=== PATIENT | male | born 1955 | race Caucasian/White ===

== ENCOUNTER 2017-09-19 13:44 | Inpatient (IN) | payer OTHER ==
[2017-09-19 14:37] VITALS: BMI 20.6
--- NOTE | 2017-09-19 18:32 | HP ---
COWS - Scale Resting Pulse: 0= [place] 80 or Below Sweatin= Chills/Flushing Restless Observation: 1= Difficult to Sit Still Pupil Size: 0= Normal to Room Light Bone or Joint Aches: 1= Mild Discomfort Runny Nose/ Eye Tearin= Nasal Congestion GI Upset > 30mins: 0= None Tremor Observation: 0= None Yawning Observation: 2= >3x During Session Anxiety or Irritability: 2=Irritable/Anxious Goose Flesh Skin: 0=Smooth Skin COWS Score: 8 Admission [facility] Chief Complaint: opioid withdrawal symptoms Allergies/Adverse Reactions: Allergies Allergy/AdvReac Type Severity Reaction Status Date / Time No Known Allergies Allergy Verified 09/19/17 16:32 History of Present Illness: 62 yo male with hx of heroin dependence (paranasal). PMHX: asthma, depression. Denies suicidal / homicidal ideation or hx of suicide attempt. Denies hx of seizures, blackouts or overdose. Longest period of sobriety 1.5 years. Last detox [facility] June 2015. Exam Limitations: No Limitations - Ebola screening Have you traveled outside of the country in the last 21 days: No (N) Have you had contact with anyone from an Ebola affected area: No Have you been sick,other than usual withdrawal symptoms: No Do you have a fever: No - Review of Systems Constitutional: Chills, Loss of Appetite, Changes in sleep, Unintentional Wgt. Loss EENT: reports: Nose Congestion Respiratory: reports: SOB with Exertion (reports hx of asthma) Cardiac: reports: No Symptoms Reported GI: reports: No Symptoms Reported : reports: No Symptoms Reported Musculoskeletal: reports: No Symptoms Reported Integumentary: reports: No Symptoms Reported Neuro: reports: Headache Endocrine: reports: No Symptoms Reported Hematology: reports: No Symptoms Reported Psychiatric: reports: Orientated x3, Depressed Other Systems: Reviewed and Negative Patient History - Patient Medical History Hx Anemia: No Hx Asthma: Yes (Pt is on MDI) Hx Chronic Obstructive Pulmonary Disease (COPD): No Hx Cancer: No Hx Cardiac Disorders: No Hx Congestive Heart Failure: No Hx Hypertension: No Hx Hypercholesterolemia: No Hx Pacemaker: No HX Cerebrovascular Accident: No Hx Seizures: No Hx Dementia: No Hx Diabetes: No Hx Gastrointestinal Disorders: No Hx Liver Disease: No Hx Genitourinary Disorders: No Hx Sexually Transmitted Disorders: No Hx Renal Disease (ESRD): No Hx Thyroid Disease: No Hx Human Immunodeficiency Virus (HIV): No (negative) Hx Hepatitis C: No Hx Depression: Yes Hx Suicide Attempt: No Hx Bipolar Disorder: No Hx Schizophrenia: No - Patient Surgical History Past Surgical History: Yes Hx Neurologic Surgery: No Hx Cataract Extraction: No Hx Cardiac Surgery: No Hx Lung Surgery: No Hx Breast Surgery: No Hx Breast Biopsy: No Hx Appendectomy: No Hx Cholecystectomy: No Hx Genitourinary Surgery: No Hx Section: No Hx Orthopedic Surgery: No Other Surgical History: R inguinal hernia repair. Anesthesia Reaction: No - PPD History Previous Implant?: Yes Documented Results: Negative w/proof Date: 06/11/15 Results: 0 mm PPD to be Administered?: Yes - Smoking Cessation Smoking history: Former smoker Have you smoked in the past 12 months: No If you are a former smoker, when did you quit?: Hx Chewing Tobacco Use: No Initiated information on smoking cessation: Yes 'Breaking Loose' booklet given: 09/19/17 - Substance & Tx. History Hx Alcohol Use: Yes Hx Substance Use: Yes Substance Use Type: Heroin Hx Substance Use Treatment: Yes (Last detox [facility] June 2015.) - Substances Abused Heroin Route: Inhalation Frequency: Daily Amount used: 15 BAGS Age of first use: 20 Date of Last Use: 09/19/17 Family Disease History - Family Disease History Family Disease History: Diabetes: Grandparent (GM-HTN), Other: Father (ARTHRITIS ) Admission Physical Exam BHS - Vital Signs Vital Signs: Vital Signs - 24 hr 09/19/17 09/19/17 14:35 17:35 Temperature 96.7 F L 98.1 F Pulse Rate 68 76 Respiratory 18 18 Rate Blood Pressure 116/76 120/60 - Physical General Appearance: Yes: Disheveled, Thin, Anxious HEENTM: Yes: EOMI, Hearing grossly Normal, Normal ENT Inspection, Pharynx Normal , Nasal Congestion, Tonsilar Exudate, Macrocephalic Respiratory: Yes: Chest Non-Tender, Lungs Clear, No Respiratory Distress, No Accessory Muscle Use, Wheezing Neck: Yes: Within Normal Limits Breast: Yes: Breast Exam Deferred Cardiology: Yes: Regular Rhythm, Regular Rate Abdominal: Yes: Normal Bowel Sounds, Non Tender, Flat, Soft Genitourinary: Yes: Within Normal Limits Back: Yes: Normal Inspection Musculoskeletal: Yes: full range of Motion, Gait Steady, Pelvis Stable Extremities: Yes: Normal Capillary Refill, Normal Inspection, Normal Range of Motion, Non-Tender 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 NML intact, Fully Oriented, Alert, Motor Strength 5/5, Depressed Affect Integumentary: Yes: Normal Color, Warm, Diaphoresis Lymphatic: Yes: Within Normal Limits - Diagnostic (1) Depressed mood Current Visit: Yes Status: Acute (2) Wheezing Current Visit: Yes Status: Acute (3) Weight loss Current Visit: Yes Status: Acute (4) Opioid dependence with withdrawal Current Visit: No Status: Acute (5) Asthma Current Visit: Yes Status: Chronic Qualifiers: Asthma severity: moderate Asthma complication type: unspecified (6) Cocaine dependence, uncomplicated Current Visit: Yes Status: Chronic Cleared for Admission [facility] - Detox or Rehab [facility] Level of Care: Medically Supervised Detox Regimen/Protocol: Methadone [facility] Breath Alcohol Content Breath Alcohol Content: 0 Urine Drug Screen - Results Drug Screen Negative: No Urine Drug Screen Results: OPI-Opiates
[2017-09-19] MEDS ORDERED: METHADONE HCL 10 MG TABLET (FOR DETOX USE ONLY) PO ONE ×2 (18:35→23:00)
[2017-09-19] MEDS ORDERED: IBUPROFEN 400 MG TABLET (FP) PO PRN (18:35)
[2017-09-19] MEDS ORDERED: MAGNESIUM CITRATE 300 ML BOTTLE PO PRN (18:35)
[2017-09-19] MEDS ORDERED: MAG HYDROX/AL HYDROX/SIMETH 30 ML UNIT-DOSE CUP PO PRN (18:35)
[2017-09-19] MEDS ORDERED: LOPERAMIDE HCL 2 MG CAPSULE PO PRN (18:35)
[2017-09-19] MEDS ORDERED: MENTHOL/PHENOL 1 EACH UD MM PRN (18:35)
[2017-09-19] MEDS ORDERED: guaiFENesin/D-METHORPHAN HB 10 ML UNIT-DOSE CUPS PO PRN (18:35)
[2017-09-19] MEDS ORDERED: MAGNESIUM HYDROX 2400MG/30ML ORAL SUSPENSION 30 ML CUP PO PRN (18:35)
[2017-09-19] MEDS ORDERED: P-EPHED 60MG/TRIPROLIDI 2.5MG TABLET PO PRN (18:35)
[2017-09-19] MEDS ORDERED: ACETAMINOPHEN 325 MG TABLET (FP) PO PRN (18:35)
[2017-09-19] MEDS: diazePAM 5 MG TABLET PO PRN (19:23)
[2017-09-19] MEDS: ALBUTEROL SO4 8 GM HFA INHALER IH PRN (19:27)
[2017-09-19 21:40] LABS: URINE APPEARANCE TURBID; URINE BILIRUBIN NEGATIVE (<2.0 mg/dL); URINE COLOR YELLOW; URINE GLUCOSE (UA) NEGATIVE (NEGATIVE); URINE KETONE NEGATIVE (NEGATIVE); URINE LEUK ESTERASE NEGATIVE (NEGATIVE); URINE NITRITE NEGATIVE (NEGATIVE); URINE PROTEIN NEGATIVE (NEGATIVE); URINE UROBILINOGEN NEGATIVE mg/dL (0.2-1.0)
[2017-09-19 21:45] LABS: YEAST RARE
[2017-09-19] MEDS: THIAMINE HCL 100 MG TABLET (FP) PO SCH (22:38)
[2017-09-20] MEDS: ALBUTEROL SO4 8 GM HFA INHALER IH PRN ×2 (03:21→08:33)
--- NOTE | 2017-09-20 09:21 | PN ---
BHS COWS - Scale Resting Pulse: 0= [place] 80 or Below Sweatin= Chills/Flushing Restless Observation: 1= Difficult to Sit Still Pupil Size: 1= Pupils >than Normal Bone or Joint Aches: 2= Severe Diffuse Aches Runny Nose/ Eye Tearin= Nasal Congestion GI Upset > 30mins: 1= Stomach Cramp Tremor Observation of Outstretched Hands: 2= Slight Tremor Visible Yawning Observation: 1= 1-2x During Session Anxiety or Irritability: 2=Irritable/Anxious Goose Flesh Skin: 0=Smooth Skin COWS Score: 12 BHS Progress Note (SOAP) Subjective: muscle aches sweat tremor restlessness irritable anxiety trouble sleep at night Objective: 09/20/17 09:19 Vital Signs Temperature 98.4 F 09/20/17 09:18 Pulse Rate 90 09/20/17 09:18 Respiratory Rate 18 09/20/17 09:18 Blood Pressure 127/71 09/20/17 09:18 O2 Sat by Pulse Oximetry (%) Laboratory Last Values Urine Color Yellow 09/19/17 21:00 Urine Appearance Turbid 09/19/17 21:00 Urine pH 5.0 (5.0-8.0) 09/19/17 21:00 Ur Specific [place] 1.026 (1.001-1.035) 09/19/17 21:00 Urine Protein Negative (NEGATIVE) 09/19/17 21:00 Urine Glucose (UA) Negative (NEGATIVE) 09/19/17 21:00 Urine Ketones Negative (NEGATIVE) 09/19/17 21:00 Urine Blood 1+ (NEGATIVE) H 09/19/17 21:00 Urine Nitrite Negative (NEGATIVE) 09/19/17 21:00 Urine Bilirubin Negative (<2.0 mg/dL) 09/19/17 21:00 Urine Urobilinogen Negative mg/dL (0.2-1.0) 09/19/17 21:00 Ur Leukocyte Esterase Negative (NEGATIVE) 09/19/17 21:00 Urine WBC (Auto) 41 /hpf (3-5) 09/19/17 21:00 Urine RBC (Auto) 2 /hpf (0-3) 09/19/17 21:00 Urine Yeast Rare 09/19/17 21:00 lab noted Assessment: 09/20/17 09:19 withdrawal sx Plan: continue detox
[2017-09-20 09:47] LABS: HEMATOCRIT 37.4 % (35.4-49); HEMOGLOBIN 12.6 GM/dL (11.7-16.9); MCH 29.8 pg (25.7-33.7); MCHC 33.7 g/dl (32.0-35.9); MEAN CELL VOLUME 88.5 fl (80-96); PLATELET COUNT 223 K/MM3 (134-434); RBC 4.23 M/mm3 (4.00-5.60); RDW 13.1 % (11.9-15.9); WHITE BLOOD COUNT 5.7 K/mm3 (4.0-10.0)
[2017-09-20] MEDS ORDERED: METHADONE HCL 10 MG TABLET (FOR DETOX USE ONLY) PO ONE (10:00)
[2017-09-20 10:35] LABS: ALBUMIN 3.4 g/dl (3.4-5.0); ANION GAP 7 (8-16); BLOOD UREA NITROGEN 20 mg/dL (7-18); CALCIUM 8.4 mg/dL (8.5-10.1); CHLORIDE 104 mmol/L (98-107); CO2 30 mmol/L (21-32); GLUCOSE,RANDOM 84 mg/dL (74-106); POTASSIUM 4.2 mmol/L (3.5-5.1); SODIUM 141 mmol/L (136-145)
[2017-09-20 10:39] LABS: ALK PHOS 62 U/L (45-117); BILIRUBIN,TOTAL 0.3 mg/dL (0.2-1.0); CREATININE 0.7 mg/dL (0.7-1.3); SGOT/AST 13 U/L (15-37); SGPT/ALT 22 U/L (12-78); TOT PROT 5.9 g/dl (6.4-8.2)
[2017-09-20] MEDS: PRENATAL VITAMINS W/ FOLIC ACID TABLET (FP) PO SCH (10:55)
--- NOTE | 2017-09-20 11:40 | CONSULT ---
[facility] Psychiatric Consult - Data Date of interview: 09/20/17 Admission source: [facility] Identifying data: Patient is a 62 year old single male, father of two, unemployed (denies receiving financial assistance) and homeless. This is one of multiple admissions for patient. Pt. admitted to for opiate dependence. Substance Abuse History: - Smoking Cessation. Smoking history: Former smoker. Have you smoked in the past 12 months: No. If you are a former smoker, when did you quit?: . Hx Chewing Tobacco Use: No. Initiated information on smoking cessation: Yes. 'Breaking Loose' booklet given: 09/19/17. - Substance & Tx. History. Hx Alcohol Use: Yes. Hx Substance Use: Yes. Substance Use Type : Heroin. Hx Substance Use Treatment: Yes (Last detox [facility] June 2015.). - Substances Abused. Heroin. Route: Inhalation. Frequency: Daily. Amount used: 15 BAGS. Age of first use: 20. Date of Last Use: 09/19/17 Medical History: Asthma, R inguinal hernia repair Psychiatric History: Patient denies h/o psychiatric hospitalization, outpatient care, and suicide attempt. Physical/Sexual Abuse/Trauma History: Denies. Mental Status Exam - Mental Status Exam Alert and Oriented to: Time, Place, Person Cognitive Function: Good Patient Appearance: Unkempt Mood: Euthymic Affect: Mood Congruent Patient Behavior: Cooperative Speech Pattern: Appropriate Voice Loudness: Moderately Soft/Quiet Thought Process: Intact, Goal Oriented Thought Disorder: Not Present Hallucinations: Denies Suicidal Ideation: Denies Homicidal Ideation: Denies Insight/Judgement: Poor Sleep: Fair Appetite: Fair Muscle strength/Tone: Normal Gait/Station: Other (Did not observe patient's gait.) Psychiatric Findings - Problem List ([place] 1, 2,3) (1) Opioid dependence with withdrawal Current Visit: Yes Status: Acute - Initial Treatment Plan Initial Treatment Plan: Psychoeducation provided. Detoxification in progress. Observation.
[2017-09-20] MEDS: ALBUTEROL SO4 0.083% IH SOL 2.5 MG/3 ML VIAL.NEB. NEB PRN ×2 (12:41→19:09)
--- NOTE | 2017-09-20 13:57 | EKG ---
Test Reason : Blood Pressure : / mmHG Vent. Rate : 069 BPM Atrial Rate : 069 BPM P-R Int : 148 ms QRS Dur : 092 ms QT Int : 410 ms P-R-T Axes : 083 084 070 degrees QTc Int : 439 ms NORMAL SINUS RHYTHM WITH SINUS ARRHYTHMIA NORMAL ECG NO PREVIOUS ECGS AVAILABLE Confirmed by Dillan Patel MD ([id number]) on 09/20/2017 1:57:15 PM Referred By: Confirmed By:Dillan Patel MD
[2017-09-20] MEDS: THIAMINE HCL 100 MG TABLET (FP) PO SCH (22:32)
[2017-09-20] MEDS: MELATONIN 5 MG TABLETS PO PRN (22:32)
[2017-09-21] MEDS: ALBUTEROL SO4 0.083% IH SOL 2.5 MG/3 ML VIAL.NEB. NEB PRN (02:17)
[2017-09-21] MEDS: diazePAM 5 MG TABLET PO PRN (06:10)
[2017-09-21] MEDS ORDERED: METHADONE HCL 5 MG TABLET (FOR DETOX USE ONLY) PO ONE (10:00)
[2017-09-21] MEDS: PRENATAL VITAMINS W/ FOLIC ACID TABLET (FP) PO SCH (10:19)
--- NOTE | 2017-09-21 11:51 | PN ---
S COWS - Scale Resting Pulse: 0= [place] 80 or Below Sweatin= Chills/Flushing Restless Observation: 1= Difficult to Sit Still Pupil Size: 1= Pupils >than Normal Bone or Joint Aches: 2= Severe Diffuse Aches Runny Nose/ Eye Tearin= Nasal Congestion GI Upset > 30mins: 2= Nausea/Diarrhea Tremor Observation of Outstretched Hands: 1= Tremor [place], Not Seen Yawning Observation: 1= 1-2x During Session Anxiety or Irritability: 2=Irritable/Anxious Goose Flesh Skin: 0=Smooth Skin COWS Score: 12 S Progress Note (SOAP) Subjective: joints pain body aches muscle cramp sweat tremor restlessness Objective: 09/21/17 11:52 Vital Signs Temperature 97.6 F 09/21/17 11:34 Pulse Rate 80 09/21/17 11:34 Respiratory Rate 16 09/21/17 11:34 Blood Pressure 130/70 09/21/17 11:34 O2 Sat by Pulse Oximetry (%) Laboratory Last Values WBC 5.7 K/mm3 (4.0-10.0) 09/20/17 07:00 RBC 4.23 M/mm3 (4.00-5.60) 09/20/17 07:00 Hgb 12.6 GM/dL (11.7-16.9) 09/20/17 07:00 Hct 37.4 % (35.4-49) 09/20/17 07:00 MCV 88.5 fl (80-96) 09/20/17 07:00 MCH 29.8 pg (25.7-33.7) 09/20/17 07:00 MCHC 33.7 g/dl (32.0-35.9) 09/20/17 07:00 RDW 13.1 % (11.9-15.9) D 09/20/17 07:00 Plt Count 223 K/MM3 (134-434) 09/20/17 07:00 MPV 9.0 fl (7.5-11.1) 09/20/17 07:00 Sodium 141 mmol/L (136-145) 09/20/17 07:00 Potassium 4.2 mmol/L (3.5-5.1) 09/20/17 07:00 Chloride 104 mmol/L (98-107) 09/20/17 07:00 Carbon Dioxide 30 mmol/L (21-32) 09/20/17 07:00 Anion Gap 7 (8-16) L 09/20/17 07:00 BUN 20 mg/dL (7-18) H 09/20/17 07:00 Creatinine 0.7 mg/dL (0.7-1.3) 09/20/17 07:00 Creat Clearance w eGFR > 60 (>60) 09/20/17 07:00 Random Glucose 84 mg/dL (74-106) 09/20/17 07:00 Calcium 8.4 mg/dL (8.5-10.1) L 09/20/17 07:00 Total Bilirubin 0.3 mg/dL (0.2-1.0) 09/20/17 07:00 AST 13 U/L (15-37) L D 09/20/17 07:00 ALT 22 U/L (12-78) 09/20/17 07:00 Alkaline Phosphatase 62 U/L (45-117) 09/20/17 07:00 Total Protein 5.9 g/dl (6.4-8.2) L 09/20/17 07:00 Albumin 3.4 g/dl (3.4-5.0) 09/20/17 07:00 Urine Color Yellow 09/19/17 21:00 Urine Appearance Turbid 09/19/17 21:00 Urine pH 5.0 (5.0-8.0) 09/19/17 21:00 Ur Specific [place] 1.026 (1.001-1.035) 09/19/17 21:00 Urine Protein Negative (NEGATIVE) 09/19/17 21:00 Urine Glucose (UA) Negative (NEGATIVE) 09/19/17 21:00 Urine Ketones Negative (NEGATIVE) 09/19/17 21:00 Urine Blood 1+ (NEGATIVE) H 09/19/17 21:00 Urine Nitrite Negative (NEGATIVE) 09/19/17 21:00 Urine Bilirubin Negative (<2.0 mg/dL) 09/19/17 21:00 Urine Urobilinogen Negative mg/dL (0.2-1.0) 09/19/17 21:00 Ur Leukocyte Esterase Negative (NEGATIVE) 09/19/17 21:00 Urine WBC (Auto) 41 /hpf (3-5) 09/19/17 21:00 Urine RBC (Auto) 2 /hpf (0-3) 09/19/17 21:00 Urine Yeast Rare 09/19/17 21:00 RPR Titer Nonreactive (NONREACTIVE) 09/20/17 07:00 lab noted Assessment: 09/21/17 11:53 withdrawal sx Plan: continue detox
[2017-09-21] MEDS: ALBUTEROL SO4 2.5/IPRATROPIUM 0.5 INH SOL 3 ML VIAL.NEB. NEB PRN ×2 (12:42→22:17)
[2017-09-21] MEDS: MELATONIN 5 MG TABLETS PO PRN (22:28)
[2017-09-21] MEDS: THIAMINE HCL 100 MG TABLET (FP) PO SCH (22:28)
[2017-09-22] MEDS: ALBUTEROL SO4 2.5/IPRATROPIUM 0.5 INH SOL 3 ML VIAL.NEB. NEB PRN (08:18)
--- NOTE | 2017-09-22 09:00 | PN ---
BHS Progress Note (SOAP) Subjective: sweat tremor restlessness irritable asthma episode released by ventolin and albuterol Objective: 09/22/17 08:57 Vital Signs Temperature 97.3 F L 09/22/17 07:26 Pulse Rate 71 09/22/17 07:26 Respiratory Rate 18 09/22/17 07:26 Blood Pressure 127/70 09/22/17 07:26 O2 Sat by Pulse Oximetry (%) Laboratory Last Values WBC 5.7 K/mm3 (4.0-10.0) 09/20/17 07:00 RBC 4.23 M/mm3 (4.00-5.60) 09/20/17 07:00 Hgb 12.6 GM/dL (11.7-16.9) 09/20/17 07:00 Hct 37.4 % (35.4-49) 09/20/17 07:00 MCV 88.5 fl (80-96) 09/20/17 07:00 MCH 29.8 pg (25.7-33.7) 09/20/17 07:00 MCHC 33.7 g/dl (32.0-35.9) 09/20/17 07:00 RDW 13.1 % (11.9-15.9) D 09/20/17 07:00 Plt Count 223 K/MM3 (134-434) 09/20/17 07:00 MPV 9.0 fl (7.5-11.1) 09/20/17 07:00 Sodium 141 mmol/L (136-145) 09/20/17 07:00 Potassium 4.2 mmol/L (3.5-5.1) 09/20/17 07:00 Chloride 104 mmol/L (98-107) 09/20/17 07:00 Carbon Dioxide 30 mmol/L (21-32) 09/20/17 07:00 Anion Gap 7 (8-16) L 09/20/17 07:00 BUN 20 mg/dL (7-18) H 09/20/17 07:00 Creatinine 0.7 mg/dL (0.7-1.3) 09/20/17 07:00 Creat Clearance w eGFR > 60 (>60) 09/20/17 07:00 Random Glucose 84 mg/dL (74-106) 09/20/17 07:00 Calcium 8.4 mg/dL (8.5-10.1) L 09/20/17 07:00 Total Bilirubin 0.3 mg/dL (0.2-1.0) 09/20/17 07:00 AST 13 U/L (15-37) L D 09/20/17 07:00 ALT 22 U/L (12-78) 09/20/17 07:00 Alkaline Phosphatase 62 U/L (45-117) 09/20/17 07:00 Total Protein 5.9 g/dl (6.4-8.2) L 09/20/17 07:00 Albumin 3.4 g/dl (3.4-5.0) 09/20/17 07:00 Urine Color Yellow 09/19/17 21:00 Urine Appearance Turbid 09/19/17 21:00 Urine pH 5.0 (5.0-8.0) 09/19/17 21:00 Ur Specific [place] 1.026 (1.001-1.035) 09/19/17 21:00 Urine Protein Negative (NEGATIVE) 09/19/17 21:00 Urine Glucose (UA) Negative (NEGATIVE) 09/19/17 21:00 Urine Ketones Negative (NEGATIVE) 09/19/17 21:00 Urine Blood 1+ (NEGATIVE) H 09/19/17 21:00 Urine Nitrite Negative (NEGATIVE) 09/19/17 21:00 Urine Bilirubin Negative (<2.0 mg/dL) 09/19/17 21:00 Urine Urobilinogen Negative mg/dL (0.2-1.0) 09/19/17 21:00 Ur Leukocyte Esterase Negative (NEGATIVE) 09/19/17 21:00 Urine WBC (Auto) 41 /hpf (3-5) 09/19/17 21:00 Urine RBC (Auto) 2 /hpf (0-3) 09/19/17 21:00 Urine Yeast Rare 09/19/17 21:00 RPR Titer Nonreactive (NONREACTIVE) 09/20/17 07:00 lab noted Assessment: 09/22/17 08:58 withdrawal sx asthma Plan: continue detox symbicort bid health teaching on side effects such as respiratory suppression of opiate based substance
[2017-09-22] MEDS ORDERED: METHADONE HCL 5 MG TABLET (FOR DETOX USE ONLY) PO ONE (10:00)
[2017-09-22] MEDS: diazePAM 5 MG TABLET PO PRN (10:43)
[2017-09-22] MEDS: PRENATAL VITAMINS W/ FOLIC ACID TABLET (FP) PO SCH (10:43)
[2017-09-22] MEDS: BUDESONIDE/FORMETEROL FUMARATE 80/4.5 mcg INHALER IH SCH ×2 (10:45→22:27)
[2017-09-22] MEDS: MELATONIN 5 MG TABLETS PO PRN (22:26)
[2017-09-22] MEDS: THIAMINE HCL 100 MG TABLET (FP) PO SCH (22:27)
[2017-09-23] MEDS ORDERED: METHADONE HCL 10 MG TABLET (FOR DETOX USE ONLY) PO ONE (10:00)
[2017-09-23] MEDS: BUDESONIDE/FORMETEROL FUMARATE 80/4.5 mcg INHALER IH SCH ×2 (10:17→22:32)
[2017-09-23] MEDS: PRENATAL VITAMINS W/ FOLIC ACID TABLET (FP) PO SCH (10:17)
--- NOTE | 2017-09-23 13:24 | PN ---
BHS Progress Note (SOAP) Subjective: no complaints today Objective: 09/23/17 12:49 Vital Signs - 24 hr 09/22/17 09/22/17 09/22/17 14:38 17:37 22:08 Temperature 97.9 F 98.2 F 98.1 F Pulse Rate 88 75 78 Respiratory 20 18 18 Rate Blood Pressure 111/81 105/59 131/79 09/23/17 09/23/17 09/23/17 00:30 03:30 06:48 Temperature 97.7 F Pulse Rate 70 Respiratory 18 16 18 Rate Blood Pressure 112/65 09/23/17 09:31 Temperature 98.1 F Pulse Rate 74 Respiratory 20 Rate Blood Pressure 111/47 Laboratory Tests 09/19/17 09/20/17 09/20/17 21:00 07:00 07:00 WBC 5.7 RBC 4.23 Hgb 12.6 Hct 37.4 MCV 88.5 MCH 29.8 MCHC 33.7 RDW 13.1 D Plt Count 223 MPV 9.0 Sodium 141 Potassium 4.2 Chloride 104 Carbon Dioxide 30 Anion Gap 7 L BUN 20 H Creatinine 0.7 Creat Clearance w eGFR > 60 Random Glucose 84 Calcium 8.4 L Total Bilirubin 0.3 AST 13 L D ALT 22 Alkaline Phosphatase 62 Total Protein 5.9 L Albumin 3.4 Urine Color Yellow Urine Appearance Turbid Urine pH 5.0 Ur Specific [place] 1.026 Urine Protein Negative Urine Glucose (UA) Negative Urine Ketones Negative Urine Blood 1+ H Urine Nitrite Negative Urine Bilirubin Negative Urine Urobilinogen Negative Ur Leukocyte Esterase Negative Urine WBC (Auto) 41 Urine RBC (Auto) 2 Urine Yeast Rare RPR Titer 09/20/17 07:00 WBC RBC Hgb Hct MCV MCH MCHC RDW Plt Count MPV Sodium Potassium Chloride Carbon Dioxide Anion Gap BUN Creatinine Creat Clearance w eGFR Random Glucose Calcium Total Bilirubin AST ALT Alkaline Phosphatase Total Protein Albumin Urine Color Urine Appearance Urine pH Ur Specific [place] Urine Protein Urine Glucose (UA) Urine Ketones Urine Blood Urine Nitrite Urine Bilirubin Urine Urobilinogen Ur Leukocyte Esterase Urine WBC (Auto) Urine RBC (Auto) Urine Yeast RPR Titer Nonreactive labs WNL VS WNL PE grossly nl Assessment: 09/23/17 13:24 continue detox protocol Plan: pt would like to go to rehab and then would like to be on Suboxone
[2017-09-23 22:29] VITALS: TEMP 97.7
[2017-09-23] MEDS: MELATONIN 5 MG TABLETS PO PRN (22:32)
[2017-09-23] MEDS: THIAMINE HCL 100 MG TABLET (FP) PO SCH (22:32)
[2017-09-24] MEDS ORDERED: METHADONE HCL 5 MG TABLET (FOR DETOX USE ONLY) PO ONE (06:00)
[2017-09-24 10:22] VITALS: BP 137/93; PULSE 80
[2017-09-24] MEDS: PRENATAL VITAMINS W/ FOLIC ACID TABLET (FP) PO SCH (10:53)
[2017-09-24] MEDS: BUDESONIDE/FORMETEROL FUMARATE 80/4.5 mcg INHALER IH SCH (10:53)
--- NOTE | 2017-09-24 12:32 | DS ---
[facility] Detox Discharge Summary Admission Date: 09/19/17 Discharge Date: 09/24/17 - History Present History: Cocaine Dependence, Opioid Dependence Pertinent Past History: Asthma and depression - Physical Exam Results Vital Signs: Vital Signs Temperature 97.7 F 09/24/17 10:22 Pulse Rate 80 09/24/17 10:22 Respiratory Rate 20 09/24/17 10:22 Blood Pressure 137/93 09/24/17 10:22 O2 Sat by Pulse Oximetry (%) Pertinent Admission Physical Exam Findings: Withdrawal sx Laboratory Last Values WBC 5.7 K/mm3 (4.0-10.0) 09/20/17 07:00 RBC 4.23 M/mm3 (4.00-5.60) 09/20/17 07:00 Hgb 12.6 GM/dL (11.7-16.9) 09/20/17 07:00 Hct 37.4 % (35.4-49) 09/20/17 07:00 MCV 88.5 fl (80-96) 09/20/17 07:00 MCH 29.8 pg (25.7-33.7) 09/20/17 07:00 MCHC 33.7 g/dl (32.0-35.9) 09/20/17 07:00 RDW 13.1 % (11.9-15.9) D 09/20/17 07:00 Plt Count 223 K/MM3 (134-434) 09/20/17 07:00 MPV 9.0 fl (7.5-11.1) 09/20/17 07:00 Sodium 141 mmol/L (136-145) 09/20/17 07:00 Potassium 4.2 mmol/L (3.5-5.1) 09/20/17 07:00 Chloride 104 mmol/L (98-107) 09/20/17 07:00 Carbon Dioxide 30 mmol/L (21-32) 09/20/17 07:00 Anion Gap 7 (8-16) L 09/20/17 07:00 BUN 20 mg/dL (7-18) H 09/20/17 07:00 Creatinine 0.7 mg/dL (0.7-1.3) 09/20/17 07:00 Creat Clearance w eGFR > 60 (>60) 09/20/17 07:00 Random Glucose 84 mg/dL (74-106) 09/20/17 07:00 Calcium 8.4 mg/dL (8.5-10.1) L 09/20/17 07:00 Total Bilirubin 0.3 mg/dL (0.2-1.0) 09/20/17 07:00 AST 13 U/L (15-37) L D 09/20/17 07:00 ALT 22 U/L (12-78) 09/20/17 07:00 Alkaline Phosphatase 62 U/L (45-117) 09/20/17 07:00 Total Protein 5.9 g/dl (6.4-8.2) L 09/20/17 07:00 Albumin 3.4 g/dl (3.4-5.0) 09/20/17 07:00 Urine Color Yellow 09/19/17 21:00 Urine Appearance Turbid 09/19/17 21:00 Urine pH 5.0 (5.0-8.0) 09/19/17 21:00 Ur Specific [place] 1.026 (1.001-1.035) 09/19/17 21:00 Urine Protein Negative (NEGATIVE) 09/19/17 21:00 Urine Glucose (UA) Negative (NEGATIVE) 09/19/17 21:00 Urine Ketones Negative (NEGATIVE) 09/19/17 21:00 Urine Blood 1+ (NEGATIVE) H 09/19/17 21:00 Urine Nitrite Negative (NEGATIVE) 09/19/17 21:00 Urine Bilirubin Negative (<2.0 mg/dL) 09/19/17 21:00 Urine Urobilinogen Negative mg/dL (0.2-1.0) 09/19/17 21:00 Ur Leukocyte Esterase Negative (NEGATIVE) 09/19/17 21:00 Urine WBC (Auto) 41 /hpf (3-5) 09/19/17 21:00 Urine RBC (Auto) 2 /hpf (0-3) 09/19/17 21:00 Urine Yeast Rare 09/19/17 21:00 RPR Titer Nonreactive (NONREACTIVE) 09/20/17 07:00 - Treatment Hospital Course: Detox Protocol Followed, Detoxed Safely, Responded well, Discharged Condition Good - Medication Discharge Medications: Ambulatory Orders Albuterol Sulfate Inhaler - [Ventolin HFA Inhaler -] 2 puff IH Q4H PRN #1 inhaler 08/20/15 Budesonide/Formeterol Fumarate [SYMBICORT 80/4.5mcg -] 1 inh PO BID 09/22/17 - Diagnosis (1) Nicotine dependence Current Visit: Yes Status: Acute Qualifiers: Nicotine product type: cigarettes Substance use status: in withdrawal Qualified Code(s): F17.213 - Nicotine dependence, cigarettes, with withdrawal (2) Opioid dependence with withdrawal Current Visit: Yes Status: Acute (3) Asthma Current Visit: Yes Status: Chronic Qualifiers: Asthma severity: moderate Asthma complication type: unspecified (4) Cocaine dependence, uncomplicated Current Visit: Yes Status: Chronic (5) Drug-induced mood disorder Current Visit: No Status: Suspected - AMA Did Patient Leave Against Medical Advice: No
== END 2017-09-24 12:09 | disposition other institution (70) | DRG 773 ==
LOC: YASAS 13:44 → Y6N 17:22
PROVIDERS: ADMIT Surgery; ATTEND Surgery
PROC: HZ2ZZZZ Detoxification Services for Substance Abuse Treatment (ICD-10-PCS; principal; 2017-09-19)
DX: F11.23 Opioid dependence with withdrawal (principal); F14.20 Cocaine dependence, uncomplicated; F17.213 Nicotine dependence, cigarettes, with withdrawal; F19.24 Other psychoactive substance dependence with psychoactive substance-induced mood disorder; F32.9 Major depressive disorder, single episode, unspecified; J45.40 Moderate persistent asthma, uncomplicated; R63.4 Abnormal weight loss; Z68.20 Body mass index [BMI] 20.0-20.9, adult; Z59.0 Homelessness
CPT/HCPCS: 36415; 80053; 81003; 81015; 85027; 86593; 93005; 93010; 94640; J7620

== ENCOUNTER 2017-09-24 12:18 | Inpatient (IN) | payer OTHER ==
[2017-09-24 12:53] VITALS: BMI 20.9
[2017-09-24] MEDS ORDERED: guaiFENesin/D-METHORPHAN HB 10 ML UNIT-DOSE CUPS PO PRN (13:25)
[2017-09-24] MEDS ORDERED: MAGNESIUM CITRATE 300 ML BOTTLE PO PRN (13:25)
[2017-09-24] MEDS ORDERED: LOPERAMIDE HCL 2 MG CAPSULE PO PRN (13:25)
[2017-09-24] MEDS ORDERED: MAGNESIUM HYDROX 2400MG/30ML ORAL SUSPENSION 30 ML CUP PO PRN (13:25)
[2017-09-24] MEDS ORDERED: P-EPHED 60MG/TRIPROLIDI 2.5MG TABLET PO PRN (13:25)
[2017-09-24] MEDS ORDERED: MENTHOL/PHENOL 1 EACH UD MM PRN (13:25)
[2017-09-24] MEDS ORDERED: ALBUTEROL SO4 8 GM HFA INHALER IH PRN (13:52)
[2017-09-24] MEDS: THIAMINE HCL 100 MG TABLET (FP) PO SCH (21:30)
[2017-09-24] MEDS: BUDESONIDE/FORMETEROL FUMARATE 80/4.5 mcg INHALER IH SCH (21:31)
[2017-09-24] MEDS: MELATONIN 5 MG TABLETS PO PRN (21:31)
[2017-09-25] MEDS: BUDESONIDE/FORMETEROL FUMARATE 80/4.5 mcg INHALER IH SCH ×2 (09:57→21:48)
[2017-09-25] MEDS: PRENATAL VITAMINS W/ FOLIC ACID TABLET (FP) PO SCH (09:57)
[2017-09-25] MEDS: MELATONIN 5 MG TABLETS PO PRN (21:48)
[2017-09-25] MEDS: THIAMINE HCL 100 MG TABLET (FP) PO SCH (21:48)
--- NOTE | 2017-09-26 06:37 | HP ---
Psychiatrist Admission - Data Date of interview: 09/26/17 Admission source: 6N Identifying data: This is the second [facility] admission for this 62 years old single Hispanc male, father of 2 children, unemployed on food stamp, homeless Medical History: Significant for history of bronchial asthma and history of surgery for right inguinal hernia repair Psychiatric History: Denies history of previous psychiatric treatment Physical/Sexual Abuse/Trauma History: Denies history of emotional, physical or sexual abuse as well as DV relationship. No service Additional Comment: Reports history of multiple previous arrests including 3-4 felony convivtions. Denies being on parole/probatio currently Vital Signs: Vital Signs - 24 hr 09/25/17 09/26/17 09/26/17 07:07 00:30 03:30 Respiratory 16 18 18 Rate Allergies/Adverse Reactions: Allergies Allergy/AdvReac Type Severity Reaction Status Date / Time No Known Allergies Allergy Verified 09/19/17 16:32 Date of last physical exam: 09/19/17 Concur with the findings of this exam: Yes - Substance Abuse/Tx History Hx Alcohol Use: Yes Hx Substance Use: Yes Substance Use Type: Heroin (Started using heroin at age 20, [id number] bags daily. Last used on 09/19/17) Hx Substance Use Treatment: Yes (7-8 previos inpt detox & 3-4 inpt rehab) Mental Status Exam - Mental Status Exam Alert and Oriented to: Time, Place, Person Cognitive Function: Fair Patient Appearance: Well Groomed Mood: Depressed (mildly) Affect: Appropriate Patient Behavior: Cooperative Speech Pattern: Clear Voice Loudness: Normal Thought Process: Intact, Goal Oriented Thought Disorder: Not Present Hallucinations: Denies Suicidal Ideation: Denies Homicidal Ideation: Denies Insight/Judgement: Fair Sleep: Poorly Appetite: Good Muscle strength/Tone: Normal Gait/Station: Normal Psychiatric Findings - Problem List ([place] 1, 2,3) (1) Opioid dependence Current Visit: No Status: Acute (2) Substance induced mood disorder Current Visit: Yes Status: Acute (3) Substance-induced sleep disorder Current Visit: Yes Status: Acute (4) Asthma Current Visit: No Status: Chronic Qualifiers: Asthma severity: moderate Asthma complication type: unspecified - Initial Treatment Plan Initial Treatment Plan: 1) Start Melatonin 5 mg po HS prn for insomnia. 2) Monitor progress
[2017-09-26] MEDS: PRENATAL VITAMINS W/ FOLIC ACID TABLET (FP) PO SCH (09:46)
[2017-09-26] MEDS: BUDESONIDE/FORMETEROL FUMARATE 80/4.5 mcg INHALER IH SCH ×2 (09:46→21:21)
[2017-09-26] MEDS: IBUPROFEN 400 MG TABLET (FP) PO PRN (09:47)
[2017-09-26] MEDS: THIAMINE HCL 100 MG TABLET (FP) PO SCH (21:22)
[2017-09-26] MEDS: MELATONIN 5 MG TABLETS PO PRN (21:22)
[2017-09-27] MEDS: MAG HYDROX/AL HYDROX/SIMETH 30 ML UNIT-DOSE CUP PO PRN (09:08)
[2017-09-27] MEDS: BUDESONIDE/FORMETEROL FUMARATE 80/4.5 mcg INHALER IH SCH ×2 (10:36→21:22)
[2017-09-27] MEDS: PRENATAL VITAMINS W/ FOLIC ACID TABLET (FP) PO SCH (10:36)
[2017-09-27] MEDS ORDERED: ONDANSETRON *ODT* 4 MG TABLET SL PRN (15:09)
--- NOTE | 2017-09-27 15:10 | PN ---
BHS Progress Note Note: c/o of nausea and vomiting Vital Signs Temperature 98.0 F 09/27/17 06:46 Pulse Rate 78 09/27/17 06:46 Respiratory Rate 16 09/27/17 06:46 Blood Pressure 106/78 09/27/17 06:46 O2 Sat by Pulse Oximetry (%) zofran PRN fluids as tolerate continue to monitor
[2017-09-27] MEDS: THIAMINE HCL 100 MG TABLET (FP) PO SCH (21:22)
[2017-09-27] MEDS: MELATONIN 5 MG TABLETS PO PRN (21:22)
[2017-09-28] MEDS: MAG HYDROX/AL HYDROX/SIMETH 30 ML UNIT-DOSE CUP PO PRN (09:49)
[2017-09-28] MEDS: PRENATAL VITAMINS W/ FOLIC ACID TABLET (FP) PO SCH (09:50)
[2017-09-28] MEDS: BUDESONIDE/FORMETEROL FUMARATE 80/4.5 mcg INHALER IH SCH ×2 (09:50→21:17)
[2017-09-28] MEDS: MELATONIN 5 MG TABLETS PO PRN (21:16)
[2017-09-28] MEDS: THIAMINE HCL 100 MG TABLET (FP) PO SCH (21:16)
[2017-09-29] MEDS: BUDESONIDE/FORMETEROL FUMARATE 80/4.5 mcg INHALER IH SCH ×2 (10:01→21:19)
[2017-09-29] MEDS: PRENATAL VITAMINS W/ FOLIC ACID TABLET (FP) PO SCH (10:01)
--- NOTE | 2017-09-29 14:48 | HP ---
[facility] Assess/Revision - Admission History Admitted to Rehab from: [facility] [place] Date of Admission to Rehab: 09/24/17 - Vital signs Vital Signs: Vital Signs Period Temp Pulse Resp BP Sys/Sanchez Pulse Ox Last 24 Hr 97.8 F 76 18-18 119/64 - Findings Detox History & Physical reviewed: Yes Concur with findings: Yes Inpatient Rehab Admission - Initial Determination Are CD services needed?: Yes Free of communicable disease: Yes Not in need of hospitalization: Yes - Rehab Admission Criteria Previous failed treatment: Yes Poor recovery environment: Yes Comorbidities: Yes Lacks judgement: Yes Patient is meeting Inpatient Rehab admission criteria:: Yes
[2017-09-29] MEDS: THIAMINE HCL 100 MG TABLET (FP) PO SCH (21:19)
[2017-09-29] MEDS: MELATONIN 5 MG TABLETS PO PRN (21:20)
[2017-09-30] MEDS: PRENATAL VITAMINS W/ FOLIC ACID TABLET (FP) PO SCH (10:14)
[2017-09-30] MEDS: BUDESONIDE/FORMETEROL FUMARATE 80/4.5 mcg INHALER IH SCH ×2 (10:14→21:33)
[2017-09-30] MEDS: THIAMINE HCL 100 MG TABLET (FP) PO SCH (21:33)
[2017-10-01] MEDS: PRENATAL VITAMINS W/ FOLIC ACID TABLET (FP) PO SCH (10:05)
[2017-10-01] MEDS: BUDESONIDE/FORMETEROL FUMARATE 80/4.5 mcg INHALER IH SCH ×2 (10:05→21:53)
[2017-10-01] MEDS: THIAMINE HCL 100 MG TABLET (FP) PO SCH (21:53)
[2017-10-01] MEDS: MAG HYDROX/AL HYDROX/SIMETH 30 ML UNIT-DOSE CUP PO PRN (21:54)
[2017-10-02] MEDS: ACETAMINOPHEN 325 MG TABLET (FP) PO PRN (00:42)
[2017-10-02] MEDS: PRENATAL VITAMINS W/ FOLIC ACID TABLET (FP) PO SCH (09:55)
[2017-10-02] MEDS: BUDESONIDE/FORMETEROL FUMARATE 80/4.5 mcg INHALER IH SCH ×2 (09:55→21:25)
[2017-10-02] MEDS: IBUPROFEN 400 MG TABLET (FP) PO PRN (21:23)
[2017-10-02] MEDS: THIAMINE HCL 100 MG TABLET (FP) PO SCH (21:24)
[2017-10-03] MEDS: ACETAMINOPHEN 325 MG TABLET (FP) PO PRN (04:19)
[2017-10-03] MEDS: PRENATAL VITAMINS W/ FOLIC ACID TABLET (FP) PO SCH (10:12)
[2017-10-03] MEDS: BUDESONIDE/FORMETEROL FUMARATE 80/4.5 mcg INHALER IH SCH ×2 (10:12→21:14)
[2017-10-03] MEDS: THIAMINE HCL 100 MG TABLET (FP) PO SCH (21:15)
[2017-10-04] MEDS: IBUPROFEN 400 MG TABLET (FP) PO PRN (04:52)
[2017-10-04] MEDS: PRENATAL VITAMINS W/ FOLIC ACID TABLET (FP) PO SCH (10:07)
[2017-10-04] MEDS: BUDESONIDE/FORMETEROL FUMARATE 80/4.5 mcg INHALER IH SCH ×2 (10:07→21:16)
[2017-10-04] MEDS: THIAMINE HCL 100 MG TABLET (FP) PO SCH (21:16)
[2017-10-05] MEDS: BUDESONIDE/FORMETEROL FUMARATE 80/4.5 mcg INHALER IH SCH ×2 (10:17→21:19)
[2017-10-05] MEDS: PRENATAL VITAMINS W/ FOLIC ACID TABLET (FP) PO SCH (10:17)
[2017-10-05] MEDS: THIAMINE HCL 100 MG TABLET (FP) PO SCH (21:19)
[2017-10-06] MEDS: IBUPROFEN 400 MG TABLET (FP) PO PRN (06:13)
[2017-10-06 07:00] VITALS: PULSE 74
[2017-10-06] MEDS: PRENATAL VITAMINS W/ FOLIC ACID TABLET (FP) PO SCH (09:38)
[2017-10-06] MEDS: BUDESONIDE/FORMETEROL FUMARATE 80/4.5 mcg INHALER IH SCH ×2 (09:38→21:15)
--- NOTE | 2017-10-06 14:12 | PN ---
Psychiatric Progress Note Vital Signs: Vital Signs Period Temp Pulse Resp BP Sys/Sanchez Pulse Ox Last 24 Hr 98.6 F 74 16-18 127/79 Date of Session: 10/06/17 Chief Complaint:: Discharge Note ROS: Patient addressing Opioid Dependence comorbid with Substance-Induced Mood Disorder and Substance-Induced sleep disorder Current Medications: Active Medications Generic Name Dose Route Start Last Admin Trade Name Freq PRN Reason Stop Dose Admin Acetaminophen 650 mg 09/24/17 13:25 10/03/17 04:19 Tylenol - PO 650 mg Q4H PRN Administration FEVER Al Hydroxide/Mg Hydroxide 30 ml 09/24/17 13:25 10/01/17 21:54 Mylanta Oral Suspension - PO 30 ml Q6H PRN Administration DYSPEPSIA Albuterol Sulfate 2 puff 09/24/17 13:52 Ventolin Hfa Inhaler - IH Q4H PRN ASTHMA Budesonide/Formoterol Fumarate 1 puff 09/24/17 22:00 10/06/17 09:38 Symbicort 80/4.5mcg - IH 1 puff BID TASH Administration Eucalyptus/Menthol/Phenol/Sorbitol 1 each 09/24/17 13:25 Cepastat Lozenge - MM Q4H PRN SORE THROAT Guaifenesin 10 ml 09/24/17 13:25 Robitussin Dm - PO Q6H PRN COUGH Ibuprofen 400 mg 09/24/17 13:25 10/06/17 06:13 Motrin - PO 400 mg Q6H PRN Administration Pain Level 4-6 Loperamide HCl 4 mg 09/24/17 13:25 Imodium - PO Q6H PRN DIARRHEA Magnesium Citrate 300 ml 09/24/17 13:25 Citroma - PO Q48H PRN CONSTIPATION Magnesium Hydroxide 30 ml 09/24/17 13:25 Milk Of Magnesia - PO DAILY PRN CONSTIPATION Melatonin 5 mg 09/24/17 22:00 09/29/17 21:20 Melatonin PO 5 mg HS PRN Administration INSOMNIA Ondansetron HCl 8 mg 09/27/17 15:09 Zofran Odt - SL Q8H PRN NAUSEA AND/OR VOMITING Multivit/Folic Acid/Iron 1 tab 09/25/17 10:00 10/06/17 09:38 Vitamins (Sjr) - PO 1 tab DAILY TASH Administration Pseudoephedrine/Triprolidine 1 combo 09/24/17 13:25 Actifed - PO TID PRN NASAL CONGESTION Thiamine HCl 100 mg 09/24/17 22:00 10/05/17 21:19 Vitamin B1 - PO Not Given HS TASH Current Side Effect: No Lab tests ordered: Yes Lab tests reviewed: Yes Provider note:: Patient will complete this program on 10/07/17. He has met his treatment goals and will continue to address his issues in fdc treatment at [facility]. 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 He is stable for discharge on 10/07/17 Total face to face time:: 35 Mental Status Exam - Mental Status Exam Alert and Oriented to: Time, Place, Person Cognitive Function: Fair Patient Appearance: Well Groomed Mood: Hopeful, Euthymic Affect: Appropriate Patient Behavior: Cooperative Speech Pattern: Clear Voice Loudness: Normal Thought Process: Intact, Goal Oriented Thought Disorder: Not Present Hallucinations: Denies Suicidal Ideation: Denies Homicidal Ideation: Denies Insight/Judgement: Fair Sleep: Fair Appetite: Good Muscle strength/Tone: Normal Gait/Station: Normal Psychiatric Treatment Plan - Problem List (1) Opioid dependence Current Visit: No (2) Substance induced mood disorder Current Visit: Yes (3) Substance-induced sleep disorder Current Visit: Yes (4) Asthma Current Visit: No Qualifiers: Asthma severity: moderate Asthma complication type: unspecified Initial treatment plan: Patient will be discharged tomorrow and referred to [facility] for fdc residential treatment
[2017-10-06] MEDS: THIAMINE HCL 100 MG TABLET (FP) PO SCH (21:15)
[2017-10-07 07:15] VITALS: BP 126/75; TEMP 97.8
== END 2017-10-07 07:20 | disposition home or self-care (01) | DRG 772 ==
LOC: YASAS 12:18 → Y5N 12:19
PROVIDERS: ADMIT Psychiatry & Neurology Psychiatry; ATTEND Psychiatry & Neurology Psychiatry
PROC: HZ42ZZZ Group Counseling for Substance Abuse Treatment, Cognitive-Behavioral (ICD-10-PCS; principal; 2017-09-24)
DX: F10.20 Alcohol dependence, uncomplicated (principal); F19.24 Other psychoactive substance dependence with psychoactive substance-induced mood disorder; F19.282 Other psychoactive substance dependence with psychoactive substance-induced sleep disorder; J45.998 Other asthma; Z59.0 Homelessness

== ENCOUNTER 2018-03-06 14:26 | Inpatient (IN) | payer OTHER ==
[2018-03-06 16:09] VITALS: BMI 19.6
--- NOTE | 2018-03-06 17:42 | HP ---
COWS - Scale Resting Pulse: 1= DE 81-100 Sweatin= Chills/Flushing Restless Observation: 1= Difficult to Sit Still Pupil Size: 0= Normal to Room Light Bone or Joint Aches: 2= Severe Diffuse Aches Runny Nose/ Eye Tearin= Runny Nose/Eyes GI Upset > 30mins: 2= Nausea/Diarrhea Tremor Observation: 1= Tremor [place], Not Seen Yawning Observation: 1= 1-2x During Session Anxiety or Irritability: 1=Feels Anxious/Irritable Goose Flesh Skin: 0=Smooth Skin COWS Score: 12 CIWA Score - Admission Criteria OASAS Guidelines: Admission for Medically Managed Detox: Requires at least one of the followin. CIWA greater than 12 2. Seizures within the past 24 hours 3. Delirium tremens within the past 24 hours 4. Hallucinations within the past 24 hours 5. Acute intervention needed for co occurring medical disorder 6. Acute intervention needed for co occurring psychiatric disorder 7. Severe withdrawal that cannot be handled at a lower level of care (continued vomiting, continued diarrhea, abnormal vital signs) requiring intravenous medication and/or fluids 8. Admission ROS [facility] - [facility] Chief Complaint: detox from heroin 62 yo with h/o asthma (on MDI) and L hip pain. heroin: 7-8 bags of heroin sniffing day. Last use this morning. cocaine- occasional no alcohol no cigarettes no THC L hip pain- says chronic- has limp and says he gets f/u [facility] and had xrays in the past DUR- none recently, was on suboxone last prescript 12/2017, stopped b/c he was continuing to use Utox: clay, fent, opia, delgado Allergies/Adverse Reactions: Allergies Allergy/AdvReac Type Severity Reaction Status Date / Time No Known Allergies Allergy Verified 03/06/18 16:58 Exam Limitations: No Limitations - Ebola screening Have you traveled outside of the country in the last 21 days: No Have you had contact with anyone from an Ebola affected area: No Have you been sick,other than usual withdrawal symptoms: No - Review of Systems Constitutional: No Symptoms Reported EENT: reports: No Symptoms Reported Respiratory: reports: No Symptoms reported GI: reports: No Symptoms Reported : reports: No Symptoms Reported Musculoskeletal: reports: Joint Pain (L hip pain- with weather-), Joint Stiffness, Other Patient History - Patient Medical History Hx Anemia: No Hx Asthma: Yes Hx Chronic Obstructive Pulmonary Disease (COPD): No Hx Cancer: No Hx Cardiac Disorders: No Hx Congestive Heart Failure: No Hx Hypertension: No Hx Hypercholesterolemia: No Hx Pacemaker: No HX Cerebrovascular Accident: No Hx Seizures: No Hx Dementia: No Hx Diabetes: No Hx Gastrointestinal Disorders: No Hx Liver Disease: No Hx Genitourinary Disorders: No Hx Sexually Transmitted Disorders: No Hx Renal Disease (ESRD): No Hx Thyroid Disease: No Hx Human Immunodeficiency Virus (HIV): No (negative) Hx Hepatitis C: No Hx Depression: Yes Hx Suicide Attempt: No Hx Bipolar Disorder: No Hx Schizophrenia: No - Patient Surgical History Past Surgical History: Yes Hx Neurologic Surgery: No Hx Cataract Extraction: No Hx Cardiac Surgery: No Hx Lung Surgery: No Hx Breast Surgery: No Hx Breast Biopsy: No Hx Appendectomy: No Hx Cholecystectomy: No Hx Genitourinary Surgery: No Hx Section: No Hx Orthopedic Surgery: No Other Surgical History: R inguinal hernia repair. Anesthesia Reaction: No - PPD History Previous Implant?: Yes Documented Results: Negative w/proof Date: 09/21/17 Results: 0 mm - Smoking Cessation Smoking history: Former smoker Have you smoked in the past 12 months: No If you are a former smoker, when did you quit?: Hx Chewing Tobacco Use: No Initiated information on smoking cessation: No 'Breaking Loose' booklet given: 03/06/18 - Substances Abused Heroin Route: Inhalation Frequency: Daily Amount used: 9 BAGS Age of first use: 19 Date of Last Use: 03/05/18 Family Disease History - Family Disease History Family Disease History: Diabetes: Grandparent (GM-HTN), Other: Father (ARTHRITIS ) Admission Physical Exam BHS - Vital Signs Vital Signs: Vital Signs - 24 hr 03/06/18 16:08 Temperature 98.5 F Pulse Rate 82 Respiratory 18 Rate Blood Pressure 117/68 - Physical General Appearance: Yes: Within Normal Limits HEENTM: Yes: Within Normal Limits, EOMI, SCOTTY Respiratory: Yes: Within Normal Limits, Crackles, Wheezing Cardiology: Yes: Within Normal Limits Abdominal: Yes: Within Normal Limits Genitourinary: Yes: Within Normal Limits Back: Yes: Within Normal Limits Musculoskeletal: Yes: Other (pain L hip pain with radiation to L knee) Extremities: Yes: Other (pain L hip) Neurological: Yes: Within Normal Limits, Alert, Motor Strength 5/5 Integumentary: Yes: Within Normal Limits Lymphatic: Yes: Within Normal Limits - Diagnostic (1) Left hip pain Current Visit: Yes Status: Acute (2) Opioid dependence with withdrawal Current Visit: No Status: Acute (3) Wheezing Current Visit: No Status: Acute Cleared for Admission [facility] - Detox or Rehab [facility] Level of Care: Medically Managed [facility] Breath Alcohol Content Breath Alcohol Content: 0 Urine Drug Screen - Results Drug Screen Negative: No Urine Drug Screen Results: CLAY-Cocaine, OPI-Opiates, BAR-Barbiturates, FEN- Fentanyl
[2018-03-06] MEDS ORDERED: P-EPHED 60MG/TRIPROLIDI 2.5MG TABLET PO PRN (17:53)
[2018-03-06] MEDS ORDERED: guaiFENesin/D-METHORPHAN HB 10 ML UNIT-DOSE CUPS PO PRN (17:53)
[2018-03-06] MEDS ORDERED: MAG HYDROX/AL HYDROX/SIMETH 30 ML UNIT-DOSE CUP PO PRN (17:53)
[2018-03-06] MEDS ORDERED: MENTHOL/PHENOL 1 EACH UD MM PRN (17:53)
[2018-03-06] MEDS ORDERED: MAGNESIUM CITRATE 300 ML BOTTLE PO PRN (17:53)
[2018-03-06] MEDS ORDERED: LOPERAMIDE HCL 2 MG CAPSULE PO PRN (17:53)
[2018-03-06] MEDS ORDERED: MAGNESIUM HYDROX 2400MG/30ML ORAL SUSPENSION 30 ML CUP PO PRN (17:53)
[2018-03-06] MEDS ORDERED: ACETAMINOPHEN 325 MG TABLET (FP) PO PRN (17:53)
[2018-03-06] MEDS ORDERED: ALBUTEROL SO4 8 GM HFA INHALER IH PRN (17:55)
[2018-03-06] MEDS ORDERED: ALBUTEROL SO4 0.083% IH SOL 2.5 MG/3 ML VIAL.NEB. NEB ONE (18:30)
[2018-03-06] MEDS ORDERED: METHADONE HCL 10 MG TABLET (FOR DETOX USE ONLY) PO ONE ×2 (19:00→23:00)
[2018-03-06] MEDS: IBUPROFEN 400 MG TABLET (FP) PO PRN (21:08)
[2018-03-06] MEDS ORDERED: MELATONIN 5 MG TABLETS PO PRN (22:00)
[2018-03-06] MEDS: THIAMINE HCL 100 MG TABLET (FP) PO SCH (22:20)
[2018-03-06] MEDS: diazePAM 5 MG TABLET PO PRN (22:20)
[2018-03-06] MEDS: BUDESONIDE/FORMETEROL FUMARATE 80/4.5 mcg INHALER IH SCH (22:20)
[2018-03-07] MEDS ORDERED: METHADONE HCL 10 MG TABLET (FOR DETOX USE ONLY) PO ONE (10:00)
[2018-03-07] MEDS: PRENATAL VITAMINS W/ FOLIC ACID TABLET (FP) PO SCH (10:08)
[2018-03-07] MEDS: IBUPROFEN 400 MG TABLET (FP) PO PRN (10:10)
[2018-03-07 10:19] LABS: HEMATOCRIT 36.5 % (35.4-49); HEMOGLOBIN 11.7 GM/dL (11.7-16.9); MCH 28.1 pg (25.7-33.7); MCHC 32.1 g/dl (32.0-35.9); MEAN CELL VOLUME 87.5 fl (80-96); MEAN PLT VOLUME 9.1 fl (7.5-11.1); PLATELET COUNT 267 K/MM3 (134-434); RBC 4.17 M/mm3 (4.00-5.60); WHITE BLOOD COUNT 7.3 K/mm3 (4.0-10.0)
[2018-03-07 10:33] LABS: ALK PHOS 65 U/L (45-117); ANION GAP 5 MMOL/L (8-16); BILIRUBIN,TOTAL 0.1 mg/dL (0.2-1); BLOOD UREA NITROGEN 20 mg/dL (7-18); CALCIUM 8.1 mg/dL (8.5-10.1); CHLORIDE 106 mmol/L (98-107); CO2 31 mmol/L (21-32); CREATININE 0.7 mg/dL (0.55-1.3); GLUCOSE,RANDOM 81 mg/dL (74-106); POTASSIUM 4.2 mmol/L (3.5-5.1); SGOT/AST 13 U/L (15-37); SGPT/ALT 26 U/L (13-61); SODIUM 142 mmol/L (136-145); TOT PROT 5.6 g/dl (6.4-8.2)
[2018-03-07] MEDS: BUDESONIDE/FORMETEROL FUMARATE 80/4.5 mcg INHALER IH SCH ×2 (11:06→22:05)
--- NOTE | 2018-03-07 12:03 | PN ---
S COWS - Scale Resting Pulse: 0= NE 80 or Below Sweatin= Chills/Flushing Restless Observation: 1= Difficult to Sit Still Pupil Size: 1= Pupils >than Normal Bone or Joint Aches: 2= Severe Diffuse Aches Runny Nose/ Eye Tearin= Nasal Congestion GI Upset > 30mins: 1= Stomach Cramp Tremor Observation of Outstretched Hands: 1= Tremor [place], Not Seen Yawning Observation: 1= 1-2x During Session Anxiety or Irritability: 2=Irritable/Anxious Goose Flesh Skin: 0=Smooth Skin COWS Score: 11 S Progress Note (SOAP) Subjective: irritable agitative tremor gi distress body aches joints pain Objective: 03/07/18 12:01 Vital Signs Temperature 97.5 F L 03/07/18 09:16 Pulse Rate 71 03/07/18 09:16 Respiratory Rate 18 03/07/18 09:16 Blood Pressure 128/83 03/07/18 09:16 O2 Sat by Pulse Oximetry (%) Laboratory Last Values WBC 7.3 K/mm3 (4.0-10.0) 03/07/18 07:00 RBC 4.17 M/mm3 (4.00-5.60) 03/07/18 07:00 Hgb 11.7 GM/dL (11.7-16.9) 03/07/18 07:00 Hct 36.5 % (35.4-49) 03/07/18 07:00 MCV 87.5 fl (80-96) 03/07/18 07:00 MCH 28.1 pg (25.7-33.7) 03/07/18 07:00 MCHC 32.1 g/dl (32.0-35.9) 03/07/18 07:00 RDW 14.0 % (11.9-15.9) 03/07/18 07:00 Plt Count 267 K/MM3 (134-434) 03/07/18 07:00 MPV 9.1 fl (7.5-11.1) 03/07/18 07:00 Sodium 142 mmol/L (136-145) 03/07/18 07:00 Potassium 4.2 mmol/L (3.5-5.1) 03/07/18 07:00 Chloride 106 mmol/L (98-107) 03/07/18 07:00 Carbon Dioxide 31 mmol/L (21-32) 03/07/18 07:00 Anion Gap 5 MMOL/L (8-16) L 03/07/18 07:00 BUN 20 mg/dL (7-18) H 03/07/18 07:00 Creatinine 0.7 mg/dL (0.55-1.3) 03/07/18 07:00 Creat Clearance w eGFR > 60 (>60) 03/07/18 07:00 Random Glucose 81 mg/dL (74-106) 03/07/18 07:00 Calcium 8.1 mg/dL (8.5-10.1) L 03/07/18 07:00 Total Bilirubin 0.1 mg/dL (0.2-1) L 03/07/18 07:00 AST 13 U/L (15-37) L 03/07/18 07:00 ALT 26 U/L (13-61) 03/07/18 07:00 Alkaline Phosphatase 65 U/L (45-117) 03/07/18 07:00 Total Protein 5.6 g/dl (6.4-8.2) L 03/07/18 07:00 Albumin 3.0 g/dl (3.4-5.0) L 03/07/18 07:00 RPR Titer Nonreactive (NONREACTIVE) 03/07/18 07:00 lab noted low ca++ Assessment: 03/07/18 12:03 withdrawal sx hypocalcemia 03/07/18 12:03 under weight Plan: continue detox oscal ca++ supplement ensure nutrition supplement
[2018-03-07] MEDS: CALCIUM 250MG/VIT-D 125 UNITS 1 COMBO TABLET PO SCH ×2 (14:19→22:04)
[2018-03-07 15:43] LABS: URINE APPEARANCE TURBID; URINE BILIRUBIN NEGATIVE (<2.0 mg/dL); URINE COLOR YELLOW; URINE GLUCOSE (UA) NEGATIVE (NEGATIVE); URINE KETONE NEGATIVE (NEGATIVE); URINE LEUK ESTERASE NEGATIVE (NEGATIVE); URINE NITRITE NEGATIVE (NEGATIVE); URINE PROTEIN NEGATIVE (NEGATIVE); URINE UROBILINOGEN NEGATIVE mg/dL (0.2-1.0)
[2018-03-07] MEDS: THIAMINE HCL 100 MG TABLET (FP) PO SCH (22:04)
[2018-03-08] MEDS ORDERED: METHADONE HCL 5 MG TABLET (FOR DETOX USE ONLY) PO ONE (10:00)
[2018-03-08] MEDS: PRENATAL VITAMINS W/ FOLIC ACID TABLET (FP) PO SCH (10:08)
[2018-03-08] MEDS: CALCIUM 250MG/VIT-D 125 UNITS 1 COMBO TABLET PO SCH ×2 (10:08→21:31)
[2018-03-08] MEDS: diazePAM 5 MG TABLET PO PRN ×2 (10:10→21:31)
[2018-03-08] MEDS: BUDESONIDE/FORMETEROL FUMARATE 80/4.5 mcg INHALER IH SCH ×2 (10:10→21:33)
--- NOTE | 2018-03-08 14:30 | PN ---
BHS COWS - Scale Resting Pulse: 0= OR 80 or Below Sweatin= Chills/Flushing Restless Observation: 1= Difficult to Sit Still Pupil Size: 1= Pupils >than Normal Bone or Joint Aches: 1= Mild Discomfort Runny Nose/ Eye Tearin= Nasal Congestion GI Upset > 30mins: 1= Stomach Cramp Tremor Observation of Outstretched Hands: 1= Tremor [place], Not Seen Yawning Observation: 2= >3x During Session Anxiety or Irritability: 1=Feels Anxious/Irritable Goose Flesh Skin: 0=Smooth Skin COWS Score: 10 S Progress Note (SOAP) Subjective: body aches muscle cramping joints pain tremor irritable Objective: 03/08/18 14:29 Vital Signs Temperature 97.3 F L 03/08/18 13:09 Pulse Rate 73 03/08/18 13:09 Respiratory Rate 16 03/08/18 13:09 Blood Pressure 103/64 03/08/18 13:09 O2 Sat by Pulse Oximetry (%) Laboratory Last Values WBC 7.3 K/mm3 (4.0-10.0) 03/07/18 07:00 RBC 4.17 M/mm3 (4.00-5.60) 03/07/18 07:00 Hgb 11.7 GM/dL (11.7-16.9) 03/07/18 07:00 Hct 36.5 % (35.4-49) 03/07/18 07:00 MCV 87.5 fl (80-96) 03/07/18 07:00 MCH 28.1 pg (25.7-33.7) 03/07/18 07:00 MCHC 32.1 g/dl (32.0-35.9) 03/07/18 07:00 RDW 14.0 % (11.9-15.9) 03/07/18 07:00 Plt Count 267 K/MM3 (134-434) 03/07/18 07:00 MPV 9.1 fl (7.5-11.1) 03/07/18 07:00 Sodium 142 mmol/L (136-145) 03/07/18 07:00 Potassium 4.2 mmol/L (3.5-5.1) 03/07/18 07:00 Chloride 106 mmol/L (98-107) 03/07/18 07:00 Carbon Dioxide 31 mmol/L (21-32) 03/07/18 07:00 Anion Gap 5 MMOL/L (8-16) L 03/07/18 07:00 BUN 20 mg/dL (7-18) H 03/07/18 07:00 Creatinine 0.7 mg/dL (0.55-1.3) 03/07/18 07:00 Creat Clearance w eGFR > 60 (>60) 03/07/18 07:00 Random Glucose 81 mg/dL (74-106) 03/07/18 07:00 Calcium 8.1 mg/dL (8.5-10.1) L 03/07/18 07:00 Total Bilirubin 0.1 mg/dL (0.2-1) L 03/07/18 07:00 AST 13 U/L (15-37) L 03/07/18 07:00 ALT 26 U/L (13-61) 03/07/18 07:00 Alkaline Phosphatase 65 U/L (45-117) 03/07/18 07:00 Total Protein 5.6 g/dl (6.4-8.2) L 03/07/18 07:00 Albumin 3.0 g/dl (3.4-5.0) L 03/07/18 07:00 Urine Color Yellow 03/06/18 11:45 Urine Appearance Turbid 03/06/18 11:45 Urine pH 5.0 (5.0-8.0) 03/06/18 11:45 Ur Specific [place] 1.029 (1.010-1.035) 03/06/18 11:45 Urine Protein Negative (NEGATIVE) 03/06/18 11:45 Urine Glucose (UA) Negative (NEGATIVE) 03/06/18 11:45 Urine Ketones Negative (NEGATIVE) 03/06/18 11:45 Urine Blood Negative (NEGATIVE) 03/06/18 11:45 Urine Nitrite Negative (NEGATIVE) 03/06/18 11:45 Urine Bilirubin Negative (<2.0 mg/dL) 03/06/18 11:45 Urine Urobilinogen Negative mg/dL (0.2-1.0) 03/06/18 11:45 Ur Leukocyte Esterase Negative (NEGATIVE) 03/06/18 11:45 RPR Titer Nonreactive (NONREACTIVE) 03/07/18 07:00 lab noted Assessment: 03/08/18 14:30 withdrawal sx Plan: continue detox
[2018-03-08] MEDS: THIAMINE HCL 100 MG TABLET (FP) PO SCH (21:31)
[2018-03-09] MEDS ORDERED: METHADONE HCL 5 MG TABLET (FOR DETOX USE ONLY) PO ONE (10:00)
[2018-03-09] MEDS: BUDESONIDE/FORMETEROL FUMARATE 80/4.5 mcg INHALER IH SCH ×2 (10:07→22:05)
[2018-03-09] MEDS: diazePAM 5 MG TABLET PO PRN (10:08)
[2018-03-09] MEDS: PRENATAL VITAMINS W/ FOLIC ACID TABLET (FP) PO SCH (10:08)
[2018-03-09] MEDS: CALCIUM 250MG/VIT-D 125 UNITS 1 COMBO TABLET PO SCH ×2 (10:08→22:04)
[2018-03-09] MEDS: IBUPROFEN 400 MG TABLET (FP) PO PRN ×2 (11:02→17:23)
--- NOTE | 2018-03-09 11:46 | PN ---
BHS Progress Note (SOAP) Subjective: body aches joints pain muscle cramping tremor sweat Objective: 03/09/18 11:47 Vital Signs Temperature 96.3 F L 03/09/18 09:51 Pulse Rate 71 03/09/18 09:51 Respiratory Rate 16 03/09/18 09:51 Blood Pressure 102/62 03/09/18 09:51 O2 Sat by Pulse Oximetry (%) Laboratory Last Values WBC 7.3 K/mm3 (4.0-10.0) 03/07/18 07:00 RBC 4.17 M/mm3 (4.00-5.60) 03/07/18 07:00 Hgb 11.7 GM/dL (11.7-16.9) 03/07/18 07:00 Hct 36.5 % (35.4-49) 03/07/18 07:00 MCV 87.5 fl (80-96) 03/07/18 07:00 MCH 28.1 pg (25.7-33.7) 03/07/18 07:00 MCHC 32.1 g/dl (32.0-35.9) 03/07/18 07:00 RDW 14.0 % (11.9-15.9) 03/07/18 07:00 Plt Count 267 K/MM3 (134-434) 03/07/18 07:00 MPV 9.1 fl (7.5-11.1) 03/07/18 07:00 Sodium 142 mmol/L (136-145) 03/07/18 07:00 Potassium 4.2 mmol/L (3.5-5.1) 03/07/18 07:00 Chloride 106 mmol/L (98-107) 03/07/18 07:00 Carbon Dioxide 31 mmol/L (21-32) 03/07/18 07:00 Anion Gap 5 MMOL/L (8-16) L 03/07/18 07:00 BUN 20 mg/dL (7-18) H 03/07/18 07:00 Creatinine 0.7 mg/dL (0.55-1.3) 03/07/18 07:00 Creat Clearance w eGFR > 60 (>60) 03/07/18 07:00 Random Glucose 81 mg/dL (74-106) 03/07/18 07:00 Calcium 8.1 mg/dL (8.5-10.1) L 03/07/18 07:00 Total Bilirubin 0.1 mg/dL (0.2-1) L 03/07/18 07:00 AST 13 U/L (15-37) L 03/07/18 07:00 ALT 26 U/L (13-61) 03/07/18 07:00 Alkaline Phosphatase 65 U/L (45-117) 03/07/18 07:00 Total Protein 5.6 g/dl (6.4-8.2) L 03/07/18 07:00 Albumin 3.0 g/dl (3.4-5.0) L 03/07/18 07:00 Urine Color Yellow 03/06/18 11:45 Urine Appearance Turbid 03/06/18 11:45 Urine pH 5.0 (5.0-8.0) 03/06/18 11:45 Ur Specific [place] 1.029 (1.010-1.035) 03/06/18 11:45 Urine Protein Negative (NEGATIVE) 03/06/18 11:45 Urine Glucose (UA) Negative (NEGATIVE) 03/06/18 11:45 Urine Ketones Negative (NEGATIVE) 03/06/18 11:45 Urine Blood Negative (NEGATIVE) 03/06/18 11:45 Urine Nitrite Negative (NEGATIVE) 03/06/18 11:45 Urine Bilirubin Negative (<2.0 mg/dL) 03/06/18 11:45 Urine Urobilinogen Negative mg/dL (0.2-1.0) 03/06/18 11:45 Ur Leukocyte Esterase Negative (NEGATIVE) 03/06/18 11:45 RPR Titer Nonreactive (NONREACTIVE) 03/07/18 07:00 lab noted Assessment: 03/09/18 11:48 withdrawal sx Plan: continue detox
[2018-03-09] MEDS: THIAMINE HCL 100 MG TABLET (FP) PO SCH (22:04)
[2018-03-10] MEDS: ALBUTEROL SO4 8 GM HFA INHALER IH PRN ×3 (03:41→19:37)
[2018-03-10] MEDS ORDERED: METHADONE HCL 10 MG TABLET (FOR DETOX USE ONLY) PO ONE (10:00)
[2018-03-10] MEDS: PRENATAL VITAMINS W/ FOLIC ACID TABLET (FP) PO SCH (10:15)
[2018-03-10] MEDS: CALCIUM 250MG/VIT-D 125 UNITS 1 COMBO TABLET PO SCH ×2 (10:15→22:24)
[2018-03-10] MEDS: BUDESONIDE/FORMETEROL FUMARATE 80/4.5 mcg INHALER IH SCH ×2 (10:16→22:24)
[2018-03-10] MEDS: IBUPROFEN 400 MG TABLET (FP) PO PRN (10:19)
[2018-03-10] MEDS ORDERED: CYCLOBENZAPRINE HCL 10 MG TABLET (FP) PO PRN (14:35)
--- NOTE | 2018-03-10 16:46 | PN ---
BHS Progress Note (SOAP) Subjective: Body Aches, Fatigue. Objective: PATIENT A & O X 3, OBSERVED AMBULATING ON UNIT. IN NO ACUTE DISTRESS. 03/10/18 16:44 Vital Signs Temperature 97.5 F L 03/10/18 13:06 Pulse Rate 77 03/10/18 13:06 Respiratory Rate 16 03/10/18 13:06 Blood Pressure 97/59 L 03/10/18 13:06 O2 Sat by Pulse Oximetry (%) Laboratory Tests 03/06/18 03/07/18 03/07/18 11:45 07:00 07:00 WBC 7.3 RBC 4.17 Hgb 11.7 Hct 36.5 MCV 87.5 MCH 28.1 MCHC 32.1 RDW 14.0 Plt Count 267 MPV 9.1 Sodium 142 Potassium 4.2 Chloride 106 Carbon Dioxide 31 Anion Gap 5 L BUN 20 H Creatinine 0.7 Creat Clearance w eGFR > 60 Random Glucose 81 Calcium 8.1 L Total Bilirubin 0.1 L AST 13 L ALT 26 Alkaline Phosphatase 65 Total Protein 5.6 L Albumin 3.0 L Urine Color Yellow Urine Appearance Turbid Urine pH 5.0 Ur Specific [place] 1.029 Urine Protein Negative Urine Glucose (UA) Negative Urine Ketones Negative Urine Blood Negative Urine Nitrite Negative Urine Bilirubin Negative Urine Urobilinogen Negative Ur Leukocyte Esterase Negative RPR Titer 03/07/18 07:00 WBC RBC Hgb Hct MCV MCH MCHC RDW Plt Count MPV Sodium Potassium Chloride Carbon Dioxide Anion Gap BUN Creatinine Creat Clearance w eGFR Random Glucose Calcium Total Bilirubin AST ALT Alkaline Phosphatase Total Protein Albumin Urine Color Urine Appearance Urine pH Ur Specific [place] Urine Protein Urine Glucose (UA) Urine Ketones Urine Blood Urine Nitrite Urine Bilirubin Urine Urobilinogen Ur Leukocyte Esterase RPR Titer Nonreactive LABS NOTED. Assessment: 03/10/18 16:45 WITHDRAWAL SYMPTOMS. Plan: CONTINUE DETOX. INCREASE DAILY PO FLUID INTAKE. PATIENT SCHEDULED FOR D/C TOMORROW AM.
[2018-03-10] MEDS: THIAMINE HCL 100 MG TABLET (FP) PO SCH (22:25)
[2018-03-11] MEDS ORDERED: METHADONE HCL 5 MG TABLET (FOR DETOX USE ONLY) PO ONE (06:00)
[2018-03-11] MEDS: CALCIUM 250MG/VIT-D 125 UNITS 1 COMBO TABLET PO SCH (10:04)
[2018-03-11] MEDS: PRENATAL VITAMINS W/ FOLIC ACID TABLET (FP) PO SCH (10:04)
[2018-03-11] MEDS: IBUPROFEN 400 MG TABLET (FP) PO PRN (10:06)
[2018-03-11] MEDS: BUDESONIDE/FORMETEROL FUMARATE 80/4.5 mcg INHALER IH SCH (10:19)
[2018-03-11 13:40] VITALS: BP 121/77; PULSE 83; TEMP 97
--- NOTE | 2018-03-11 21:43 | DS ---
[facility] Detox Discharge Summary Admission Date: 03/06/18 Discharge Date: 03/11/18 - History Present History: Opioid Dependence Additional Comments: PATIENT ORIGINALLY PLANNED ON ATTENDING [facility] ([place], [place]) FOR AFTERCARE. HOWEVER, NO BEDS ARE AVAILABLE AT [facility] AT THIS TIME. THUS, PATIENT WILL GO TO LOCAL NURSING HOME FOR NEXT COUPLE OF DAYS, THEN WILL APPLY FOR ADMISSION TO [facility] IN THE NEXT COUPLE OF DAYS. PATIENT WAS DISCHARGED FROM DETOX UNIT IN STABLE MEDICAL CONDITION. Pertinent Past History: Asthma, History of Depression, Wheezing, History of Left Hip Pain. - Physical Exam Results Vital Signs: Vital Signs Temperature 97.0 F L 03/11/18 13:40 Pulse Rate 83 03/11/18 13:40 Respiratory Rate 20 03/11/18 13:40 Blood Pressure 121/77 03/11/18 13:40 O2 Sat by Pulse Oximetry (%) Pertinent Admission Physical Exam Findings: WITHDRAWAL SYMPTOMS. Laboratory Tests 03/06/18 03/07/18 03/07/18 11:45 07:00 07:00 WBC 7.3 RBC 4.17 Hgb 11.7 Hct 36.5 MCV 87.5 MCH 28.1 MCHC 32.1 RDW 14.0 Plt Count 267 MPV 9.1 Sodium 142 Potassium 4.2 Chloride 106 Carbon Dioxide 31 Anion Gap 5 L BUN 20 H Creatinine 0.7 Creat Clearance w eGFR > 60 Random Glucose 81 Calcium 8.1 L Total Bilirubin 0.1 L AST 13 L ALT 26 Alkaline Phosphatase 65 Total Protein 5.6 L Albumin 3.0 L Urine Color Yellow Urine Appearance Turbid Urine pH 5.0 Ur Specific [place] 1.029 Urine Protein Negative Urine Glucose (UA) Negative Urine Ketones Negative Urine Blood Negative Urine Nitrite Negative Urine Bilirubin Negative Urine Urobilinogen Negative Ur Leukocyte Esterase Negative RPR Titer 03/07/18 07:00 WBC RBC Hgb Hct MCV MCH MCHC RDW Plt Count MPV Sodium Potassium Chloride Carbon Dioxide Anion Gap BUN Creatinine Creat Clearance w eGFR Random Glucose Calcium Total Bilirubin AST ALT Alkaline Phosphatase Total Protein Albumin Urine Color Urine Appearance Urine pH Ur Specific [place] Urine Protein Urine Glucose (UA) Urine Ketones Urine Blood Urine Nitrite Urine Bilirubin Urine Urobilinogen Ur Leukocyte Esterase RPR Titer Nonreactive LABS NOTED. - Treatment Hospital Course: Detox Protocol Followed, Detoxed Safely, Responded well, Discharged Condition Good, Rehab Referral Accepted Patient has Accepted a Rehab Referral to: [facility] ([address] ). WILL APPLY WHEN BED AVAILABLE. - Medication Discharge Medications: Ambulatory Orders Albuterol Sulfate Inhaler - [Ventolin HFA Inhaler -] 2 puff IH Q4H PRN #1 inhaler 08/20/15 Budesonide/Formeterol Fumarate [SYMBICORT 80/4.5mcg -] 1 inh PO BID 09/22/17 - Diagnosis (1) Left hip pain Status: Acute (2) Nicotine dependence Status: Acute Qualifiers: Nicotine product type: cigarettes Substance use status: in withdrawal Qualified Code(s): F17.213 - Nicotine dependence, cigarettes, with withdrawal (3) Opioid dependence with withdrawal Status: Acute (4) Wheezing Status: Acute - AMA Did Patient Leave Against Medical Advice: No
== END 2018-03-11 02:05 | disposition home or self-care (01) | DRG 773 ==
LOC: YASAS 14:26 → Y3N 18:37
PROC: HZ2ZZZZ Detoxification Services for Substance Abuse Treatment (ICD-10-PCS; principal; 2018-03-06)
DX: F11.23 Opioid dependence with withdrawal (principal); J45.909 Unspecified asthma, uncomplicated; M25.552 Pain in left hip; E83.51 Hypocalcemia; R63.6 Underweight; Z68.1 Body mass index [BMI] 19.9 or less, adult
CPT/HCPCS: 36415; 80053; 81003; 85027; 86593